=== PATIENT | female | born 1945 | race Caucasian/White ===

== ENCOUNTER 2018-02-27 14:54 | Inpatient (IN) | payer MEDICARE, OTHER ==
[~2018-02-27] VITALS: Ht 165.1 cm; Wt 95.2 kg
[2018-02-27] MEDS ORDERED: SODIUM CHLORIDE FLUSH 10ML SYR IVF ONE (15:30)
[2018-02-27 15:49] LABS: INTERNATIONAL NORMALIZED RATIO 0.95 (0.93-1.1); PROTHROMBIN TIME 9.9 Seconds (9.6-11.5)
[2018-02-27] MEDS ORDERED: MUSCLE RELAXER (15:49)
[2018-02-27] MEDS ORDERED: ALPR1TAB2 PO (15:49)
[2018-02-27] MEDS ORDERED: OXYC-306 PO (15:49)
[2018-02-27] MEDS ORDERED: TELM40TA PO (15:49)
[2018-02-27 15:58] LABS: TROPONIN I 0.476 ng/mL (0.000-0.045)
[2018-02-27] MEDS ORDERED: NITROGLYCERIN 0.4 MG BOTTLE (25 TABS) SL PRN (17:00)
[2018-02-27] MEDS ORDERED: TRAZODONE 50MG TABLET PO PRN (17:00)
[2018-02-27] MEDS ORDERED: HEPARIN 25,000 UNITS/500ML PMX 500 ML IV PRN ×2 (17:00→18:00)
[2018-02-27] MEDS ORDERED: ONDANSETRON 2MG/ML, 2ML IVPush PRN (17:00)
[2018-02-27] MEDS ORDERED: LABETALOL 5MG/ML, 20ML IVPush PRN (17:00)
[2018-02-27 17:16] VITALS: BP 161/65
[2018-02-27] MEDS: SODIUM CHLORIDE 0.9% 1,000 ML IV SCH (17:27)
[2018-02-27 17:37] LABS: FREE T4 (FREE THYROXINE) 0.79 ng/dL (0.76-1.46); THYROID STIMULATING HORMONE 1.36 mIU/L (0.358-3.740)
[2018-02-27] MEDS ORDERED: HEPARIN 5,000 UNITS/ML, 1ML IV ONE (18:00)
[2018-02-27] MEDS ORDERED: HEPARIN 5,000 UNITS/ML, 1ML IV PRN (18:00)
[2018-02-27] MEDS: ACETAMINOPHEN 325 MG TABLET PO PRN (18:17)
[2018-02-27 20:06] VITALS: BP 142/79
[2018-02-27] MEDS: AMOXICILLIN/CLAV 875-125MG TABLET PO SCH (20:07)
[2018-02-27] MEDS: ATORVASTATIN 40 MG TABLET PO SCH (20:07)
[2018-02-27] MEDS: ALPRazolam 1MG TABLET PO PRN (20:08)
[2018-02-27 21:46] LABS: TROPONIN I 0.429 ng/mL (0.000-0.045)
[2018-02-27] MEDS ORDERED: OMNIPAQUE 350 MG/ML, 100ML BOTTLE ONE (22:04)
[2018-02-28 01:01] VITALS: BP 137/58
[2018-02-28 03:16] LABS: BASOPHILS # (AUTO) 0.02 x10^3/uL (0-0.1); BASOPHILS % (AUTO) 0 % (0-1); EOSINOPHILS % (AUTO) 0 % (1-7); LYMPHOCYTES # (AUTO) 1.04 x10^3/uL (1-3.4); LYMPHOCYTES % (AUTO) 15 % (22-44); MD NO; MEAN CORPUSCULAR HEMOGLOBIN 31.2 pg (27.0-34.8); MEAN CORPUSCULAR VOLUME 94.6 fL (80-100); MEAN PLATELET VOLUME 7.8 fL (7.4-10.4); MONOCYTES # (AUTO) 0.47 x10^3/uL (0.2-0.8); MONOCYTES % (AUTO) 7 % (2-9); NEUTROPHILS # (AUTO) 5.28 x10^3/uL (1.8-6.8); NEUTROPHILS % (AUTO) 78 % (42-75); PLATELET COUNT 241 x10^3/uL (130-400); RED CELL DISTRIBUTION WIDTH 12.8 % (9.6-15.2)
[2018-02-28 03:28] LABS: ALANINE AMINOTRANSFERASE 19 U/L (12-78); ALBUMIN 2.8 g/dL (3.4-5.0); ANION GAP 10 mmol/L (5-15); CALCIUM 8.4 mg/dL (8.5-10.1); CHLORIDE 108 mmol/L (98-107)
[2018-02-28 03:32] LABS: ALKALINE PHOSPHATASE 60 U/L (45-117); BILIRUBIN,TOTAL 0.3 mg/dL (0.2-1.0); TOTAL PROTEIN 6.4 g/dL (6.4-8.2); TROPONIN I 0.291 ng/mL (0.000-0.045)
[2018-02-28] MEDS: OXYcodone/APAP 7.5/325MG TABLET PO PRN ×2 (05:55→22:41)
[2018-02-28] MEDS ORDERED: ASPIRIN 81 MG TABLET EC PO SCH (06:00)
[2018-02-28] MEDS: SODIUM CHLORIDE 0.9% 1,000 ML IV SCH ×3 (08:14→20:33)
[2018-02-28 09:08] VITALS: BP 135/66
[2018-02-28] MEDS: AMOXICILLIN/CLAV 875-125MG TABLET PO SCH ×2 (09:47→20:31)
[2018-02-28] MEDS: DOXYCYCLINE 100MG TABLET PO SCH ×2 (09:47→20:31)
[2018-02-28] MEDS: ACETAMINOPHEN 325 MG TABLET PO PRN (11:16)
[2018-02-28 13:00] VITALS: BP 133/72
[2018-02-28] MEDS ORDERED: LIDOCAINE-MPF 2%, 2ML ONE (14:32)
[2018-02-28] MEDS ORDERED: MIDAZOLAM 1 MG/ML, 5ML ONE (14:32)
[2018-02-28] MEDS ORDERED: VERAPAMIL 2.5 MG/ML, 2ML ONE (14:32)
[2018-02-28] MEDS ORDERED: BIVALIRUDIN 250 MG ONE (14:32)
[2018-02-28] MEDS ORDERED: TICAGRELOR 90 MG TABLET ONE (14:32)
[2018-02-28] MEDS ORDERED: FENTANYL PF 100 MCG/2ML ONE (14:32)
[2018-02-28] MEDS ORDERED: HEPARIN 1,000 UNITS/ML, 10ML ONE (14:32)
[2018-02-28] MEDS ORDERED: LIDOCAINE 2%, 10ML ONE (15:22)
[2018-02-28] MEDS: GUAIFENESIN 200 MG TABLET PO SCH ×2 (16:00→20:32)
[2018-02-28 19:13] VITALS: BP 149/80
[2018-02-28] MEDS: ATORVASTATIN 40 MG TABLET PO SCH (20:31)
[2018-02-28] MEDS: TICAGRELOR 90 MG TABLET PO SCH (20:31)
[2018-02-28] MEDS: ALPRazolam 1MG TABLET PO PRN (22:41)
[2018-03-01 01:44] VITALS: BP 115/68
[2018-03-01] MEDS: SODIUM CHLORIDE 0.9% 1,000 ML IV SCH ×2 (03:50→15:24)
[2018-03-01 05:34] LABS: BASOPHILS # (AUTO) 0.02 x10^3/uL (0-0.1); BASOPHILS % (AUTO) 0 % (0-1); EOSINOPHILS # (AUTO) 0.33 x10^3/uL (0-0.4); EOSINOPHILS % (AUTO) 5 % (1-7); LYMPHOCYTES # (AUTO) 1.56 x10^3/uL (1-3.4); LYMPHOCYTES % (AUTO) 22 % (22-44); MD NO; MEAN CORPUSCULAR HEMOGLOBIN 31.3 pg (27.0-34.8); MEAN CORPUSCULAR HGB CONC 33.3 g/dL (32.4-35.8); MEAN CORPUSCULAR VOLUME 94.1 fL (80-100); MEAN PLATELET VOLUME 7.9 fL (7.4-10.4); MONOCYTES # (AUTO) 0.41 x10^3/uL (0.2-0.8); MONOCYTES % (AUTO) 6 % (2-9); NEUTROPHILS # (AUTO) 4.74 x10^3/uL (1.8-6.8); NEUTROPHILS % (AUTO) 67 % (42-75); PLATELET COUNT 231 x10^3/uL (130-400); RED CELL DISTRIBUTION WIDTH 13.1 % (9.6-15.2)
[2018-03-01 05:48] LABS: ANION GAP 7 mmol/L (5-15); CALCIUM 8.7 mg/dL (8.5-10.1); CHLORIDE 109 mmol/L (98-107)
[2018-03-01 05:52] LABS: ALANINE AMINOTRANSFERASE 19 U/L (12-78); ALKALINE PHOSPHATASE 61 U/L (45-117); BILIRUBIN,TOTAL 0.6 mg/dL (0.2-1.0); CHOL/HDL RATIO 5.1; CHOLESTEROL, TOTAL 158 mg/dL (140-239); CREATININE 1.02 mg/dL (0.55-1.02); HDL CHOL % 20 % (28-40); HDL CHOLESTEROL (DIRECT) 31 mg/dL (40-60); LDL CHOLESTEROL,CALCULATED 84 mg/dL (54-169); LDL/HDL RATIO 2.7 (0.5-3.0); TOTAL PROTEIN 6.4 g/dL (6.4-8.2); TRIGLYCERIDES 217 mg/dL (50-200); VLDL CHOLESTEROL 43 mg/dL (0-25)
[2018-03-01] MEDS: GUAIFENESIN 200 MG TABLET PO SCH ×4 (06:39→21:07)
[2018-03-01] MEDS: TICAGRELOR 90 MG TABLET PO SCH ×2 (08:28→21:07)
[2018-03-01] MEDS: DOXYCYCLINE 100MG TABLET PO SCH ×2 (08:28→21:05)
[2018-03-01] MEDS: AMOXICILLIN/CLAV 875-125MG TABLET PO SCH ×2 (08:28→21:05)
[2018-03-01] MEDS: ASPIRIN 81 MG TABLET EC PO SCH (08:29)
[2018-03-01 08:38] VITALS: BP 170/83
[2018-03-01 08:39] VITALS: BP 151/80
[2018-03-01 12:45] VITALS: BP 146/71
[2018-03-01 14:51] VITALS: BP 134/81
[2018-03-01] MEDS: LOSARTAN 50MG TABLET PO SCH (15:29)
[2018-03-01] MEDS: METOPROLOL TARTRATE 25 MG TABLET PO SCH (18:57)
[2018-03-01 19:55] VITALS: BP 159/82
[2018-03-01] MEDS: ALPRazolam 1MG TABLET PO PRN (21:06)
[2018-03-01] MEDS: ATORVASTATIN 40 MG TABLET PO SCH (21:07)
[2018-03-01] MEDS: OXYcodone/APAP 7.5/325MG TABLET PO PRN (21:07)
[2018-03-02 00:52] VITALS: BP 113/74
[2018-03-02 05:22] VITALS: BP 164/78
[2018-03-02 05:33] LABS: CHLORIDE 107 mmol/L (98-107)
[2018-03-02] MEDS: GUAIFENESIN 200 MG TABLET PO SCH (05:36)
[2018-03-02] MEDS: METOPROLOL TARTRATE 25 MG TABLET PO SCH (05:37)
[2018-03-02 05:41] LABS: ANION GAP 10 mmol/L (5-15); CALCIUM 9.1 mg/dL (8.5-10.1); CREATININE 1.07 mg/dL (0.55-1.02)
[2018-03-02 07:43] VITALS: BP 138/81
[2018-03-02] MEDS: AMOXICILLIN/CLAV 875-125MG TABLET PO SCH (08:38)
[2018-03-02] MEDS: TICAGRELOR 90 MG TABLET PO SCH (08:38)
[2018-03-02] MEDS: ASPIRIN 81 MG TABLET EC PO SCH (08:38)
[2018-03-02] MEDS: LOSARTAN 50MG TABLET PO SCH (08:38)
[2018-03-02] MEDS: DOXYCYCLINE 100MG TABLET PO SCH (08:38)
[2018-03-02] MEDS ORDERED: DOXY100T PO (10:27)
[2018-03-02] MEDS ORDERED: ASPI-621 PO (10:27)
[2018-03-02] MEDS ORDERED: NITR0.4T SL (10:27)
[2018-03-02] MEDS ORDERED: TICA90TA PO (10:27)
[2018-03-02] MEDS ORDERED: METO25TA35 PO (10:27)
[2018-03-02] MEDS ORDERED: ATOR40TA78 PO (10:27)
[2018-03-02] MEDS ORDERED: GUAI200T3 PO (10:27)
[2018-03-02] MEDS ORDERED: AMOX1TAB12 PO (10:27)
[2018-03-02] MEDS ORDERED: LOSA50TA2 PO (10:27)
== END 2018-03-02 14:10 | disposition home or self-care (01) | DRG 246 ==
LOC: ED 16:51 → EDIP 16:52 → ED 17:00 → 5SO 17:09
PROVIDERS: ADMIT Internal Medicine; ATTEND Internal Medicine
PROC: 027035Z Dilation of Coronary Artery, One Artery with Two Drug-eluting Intraluminal Devices, Percutaneous Approach (ICD-10-PCS; principal; 2018-02-28)
PROC: 4A023N7 Measurement of Cardiac Sampling and Pressure, Left Heart, Percutaneous Approach (ICD-10-PCS; 2018-02-28)
PROC: B2111ZZ Fluoroscopy of Multiple Coronary Arteries using Low Osmolar Contrast (ICD-10-PCS; 2018-02-28)
PROC: B2151ZZ Fluoroscopy of Left Heart using Low Osmolar Contrast (ICD-10-PCS; 2018-02-28)
DX: I21.4 Non-ST elevation (NSTEMI) myocardial infarction (principal); J18.9 Pneumonia, unspecified organism; N17.0 Acute kidney failure with tubular necrosis; E44.0 Moderate protein-calorie malnutrition; Q21.1 Atrial septal defect; I25.10 Atherosclerotic heart disease of native coronary artery without angina pectoris; E66.9 Obesity, unspecified; E78.5 Hyperlipidemia, unspecified; I10 Essential (primary) hypertension; I35.1 Nonrheumatic aortic (valve) insufficiency; J20.9 Acute bronchitis, unspecified; K21.9 Gastro-esophageal reflux disease without esophagitis; M06.9 Rheumatoid arthritis, unspecified; M79.7 Fibromyalgia; Z82.49 Family history of ischemic heart disease and other diseases of the circulatory system; Z87.891 Personal history of nicotine dependence; Z86.711 Personal history of pulmonary embolism; Z90.710 Acquired absence of both cervix and uterus; Z68.34 Body mass index [BMI] 34.0-34.9, adult; Z88.6 Allergy status to analgesic agent
CPT/HCPCS: 36415; 71045; 71275; 80048; 80053; 80061; 83735; 83880; 84439; 84443; 84484; 85025; 85379; 85520; 85610; 85730; 87040; 87070; 87205; 93005; 93306; 93458; 99156; 99157; 99285; C1769; C1894; C9600; C9601; G0378; J0583; J1644; J2001; J2250; J3010; J3490; Q9967; C1725; C1874; C1887; J7030